=== PATIENT | female | born 1955 | race Hispanic/Latino ===

== ENCOUNTER → 2018-11-27 | Outpatient (CLI) | payer BC, MEDICAID ==
[~2018-11-27] MED LIST: CHLO500T3 PO; CLON0.252 PO; EMPA25TA PO; ESTR50GE TD; GLIM2TAB3 PO; HYDR25TA PO; LOSA100T58 PO; METF-446 PO; TRAM100C3 PO
== END | disposition home or self-care (01) ==
LOC: RAH 09:16
PROVIDERS: ATTEND Internal Medicine
DX: Z12.31 Encounter for screening mammogram for malignant neoplasm of breast (principal)
CPT/HCPCS: 77067

== ENCOUNTER 2021-01-31 13:32 | Emergency (ER) | payer BC ==
[~2021-01-31] VITALS: Ht 154.9 cm; Wt 69.4 kg
[~2021-01-31 13:32] MED LIST changes: -GLIM2TAB3 PO; +GLIM2TAB30 PO
[2021-01-31 14:54] LABS: APPEARANCE,URINE Clear (CLEAR); BILIRUBIN,URINE Negative (NEGATIVE); COLOR,URINE Yellow (YELLOW); GLUCOSE, URINE (UA) >=1000 mg/dL (NEGATIVE); KETONES,URINE Negative (NEGATIVE); LEUKOCYTE ESTERASE ,URINE Negative (NEGATIVE); NITRATE,URINE Negative (NEGATIVE); OCCULT BLOOD,URINE Negative (NEGATIVE); PH,URINE 7.5 (5.0-8.0); PROTEIN,URINE Negative (NEGATIVE); UROBILINOGEN,URINE 0.2 mg/dL (0.2-1.0)
[2021-01-31] MEDS ORDERED: KETOROLAC 30MG VIAL (30MG/ML) IM ONE (15:00)
[2021-01-31] MEDS ORDERED: ORPHENADRINE CITRATE 30 MG/ML ML IM ONE (15:00)
[2021-01-31 15:16] LABS: BACTERIA,URINE Rare /HPF (None Seen); RBC,URINE 0-1 /HPF (0-1); SQUAMOUS EPITHELIAL CELL,UR Rare /HPF (0-2); WBC,URINE 0-1 /HPF (0-1)
[2021-01-31 15:42] LABS: BASOPHILS % (AUTO) 0.7 % (0.0-5.0); EOSINOPHILS % (AUTO) 1.4 % (0.0-8.0); HEMATOCRIT 38.4 % (36-48); LYMPHOCYTES % (AUTO) 43.7 % (21.0-51.0); MEAN CORPUSCULAR HEMOGLOBIN 27.3 pg (27.0-33.0); MEAN CORPUSCULAR HGB CONC 31.5 g/dL (32.0-36.0); MEAN CORPUSCULAR VOLUME 86.7 fL (79-99); MONOCYTES % (AUTO) 6.1 % (3.0-13.0); PLATELET COUNT (AUTO) 363 K/uL (130-400); RED BLOOD CELL COUNT(AUTO) 4.43 MIL/uL (4.00-5.50); RED CELL DISTRIBUTION WIDTH 14.4 % (11.0-15.5); WHITE BLOOD COUNT (AUTO) 6.9 K/uL (4.8-10.8)
[2021-01-31 15:55] LABS: CREATININE 0.6 mg/dL (0.5-1.5); POTASSIUM 4.5 mmol/L (3.5-5.1)
[2021-01-31 15:59] LABS: ALBUMIN 3.6 g/dL (3.5-5.0); BILIRUBIN,TOTAL 0.2 mg/dL (0.2-1.0); TOTAL PROTEIN, SERUM 7.5 g/dL (6.0-8.3)
[2021-01-31 16:10] VITALS: BP 145/74
[2021-01-31] MEDS ORDERED: IBUP-2070 PO (16:42)
[2021-01-31] MEDS ORDERED: ORPH-43 PO (16:42)
== END 2021-01-31 17:04 | disposition home or self-care (01) ==
LOC: EDH 13:32
DX: S76.911A Strain of unspecified muscles, fascia and tendons at thigh level, right thigh, initial encounter (principal); R07.89 Other chest pain; M25.561 Pain in right knee; M79.605 Pain in left leg; M54.2 Cervicalgia; E11.9 Type 2 diabetes mellitus without complications; I10 Essential (primary) hypertension; M19.90 Unspecified osteoarthritis, unspecified site; Z88.0 Allergy status to penicillin; Z79.899 Other long term (current) drug therapy; Z79.84 Long term (current) use of oral hypoglycemic drugs; Z79.1 Long term (current) use of non-steroidal anti-inflammatories (NSAID); X58.XXXA Exposure to other specified factors, initial encounter; Y93.89 Activity, other specified; Y92.89 Other specified places as the place of occurrence of the external cause; Y99.8 Other external cause status
CPT/HCPCS: 36415; 71045; 80053; 81001; 82550; 84484; 85025; 93005; 96372 ×2; 99284; J1885; J2360

== ENCOUNTER → 2021-08-03 | Outpatient (CLI) | payer BC ==
[~2021-08-03] MED LIST changes: +IBUP-2070 PO; +ORPH-43 PO
== END ==
LOC: RAH 08:37
PROVIDERS: ATTEND Internal Medicine
DX: K44.9 Diaphragmatic hernia without obstruction or gangrene (principal)
CPT/HCPCS: 74240

== ENCOUNTER → 2021-10-15 | Outpatient (CLI) | payer BC ==
[~2021-10-15] VITALS: Ht 152.4 cm; Wt 66.4 kg
[~2021-10-15] MED LIST changes: +CYCL5TAB PO; +DICY20TA3 PO; +EMPA1TAB19 PO; +LOSA1TAB54 PO; +SEMA2PEN SQ; +VITAD50000 PO
[2021-10-15 13:22] LABS: BASOPHILS % (AUTO) 0.6 % (0.0-5.0); EOSINOPHILS % (AUTO) 1.4 % (0.0-8.0); LYMPHOCYTES % (AUTO) 39.7 % (21.0-51.0); MEAN CORPUSCULAR HEMOGLOBIN 26.8 pg (27.0-33.0); MEAN CORPUSCULAR HGB CONC 31.2 g/dL (32.0-36.0); MEAN CORPUSCULAR VOLUME 85.9 fL (79-99); MONOCYTES % (AUTO) 6.6 % (3.0-13.0); NEUTROPHILS % (AUTO) 51.4 % (40.0-77.0); PLATELET COUNT (AUTO) 358 K/uL (130-400); RED BLOOD CELL COUNT(AUTO) 4.89 MIL/uL (4.00-5.50); RED CELL DISTRIBUTION WIDTH 14.3 % (11.0-15.5); WHITE BLOOD COUNT (AUTO) 6.5 K/uL (4.8-10.8)
[2021-10-15 13:34] LABS: CREATININE 0.5 mg/dL (0.5-1.5); POTASSIUM 4.2 mmol/L (3.5-5.1)
[2021-10-16 09:14] VITALS: BP 129/76
== END | disposition home or self-care (01) ==
LOC: DAH 10:00 → EDSTATUS 10-17 14:00
PROVIDERS: ATTEND Surgery
DX: K44.9 Diaphragmatic hernia without obstruction or gangrene (principal)
CPT/HCPCS: 80048; 85025; 86850; 86900; 86901; 87426; 36415; 93005; A6260

== ENCOUNTER 2022-01-20 08:55 | Emergency (ER) | payer BC ==
[~2022-01-20] VITALS: Ht 152.4 cm; Wt 64.4 kg
[~2022-01-20 08:55] MED LIST changes: -CHLO500T3 PO; -CLON0.252 PO; -EMPA25TA PO; -ESTR50GE TD; -GLIM2TAB30 PO; -HYDR25TA PO; -IBUP-2070 PO; -LOSA100T58 PO; -METF-446 PO; -ORPH-43 PO; -TRAM100C3 PO
[2022-01-20] MEDS ORDERED: GABAPENTIN 300 MG CAPSULE ONE (09:23)
[2022-01-20] MEDS ORDERED: CYCLOBENZAPRINE HCL 10 MG TABLET ONE (09:23)
[2022-01-20] MEDS ORDERED: MORPHINE 2 MG SYG ONE (09:24)
[2022-01-20] MEDS ORDERED: MORPHINE 2 MG SYG IM ONE (09:30)
[2022-01-20] MEDS ORDERED: CYCLOBENZAPRINE HCL 10 MG TABLET PO ONE (09:30)
[2022-01-20] MEDS ORDERED: GABAPENTIN 300 MG CAPSULE PO SCH (09:30)
[2022-01-20] MEDS ORDERED: GABA300C PO (09:44)
[2022-01-20] MEDS ORDERED: IBUP-1493 PO (09:44)
[2022-01-20] MEDS ORDERED: LIDOP TD (09:44)
[2022-01-20 10:00] VITALS: BP 149/87
== END 2022-01-20 10:02 | disposition home or self-care (01) ==
LOC: EDH 08:55
DX: M25.512 Pain in left shoulder (principal); M19.90 Unspecified osteoarthritis, unspecified site; E11.9 Type 2 diabetes mellitus without complications; I10 Essential (primary) hypertension; Z90.49 Acquired absence of other specified parts of digestive tract; Z88.0 Allergy status to penicillin; Z79.899 Other long term (current) drug therapy; Z79.84 Long term (current) use of oral hypoglycemic drugs
CPT/HCPCS: 73030; 93005; 96372

== ENCOUNTER 2022-09-12 06:19 | Day surgery (SDC) | payer OTHER ==
[2022-09-11 11:38] VITALS: BP 140/82
[~2022-09-12] VITALS: Ht 154.9 cm; Wt 58.7 kg
[~2022-09-12 06:19] MED LIST changes: -CYCL5TAB PO; -DICY20TA3 PO; +PREG50CA63 PO; +SEMA1PEN3 SQ; -SEMA2PEN SQ; -VITAD50000 PO
[2022-09-12 07:00] VITALS: BP 118/69
[2022-09-12] MEDS ORDERED: PROPOFOL 10 MG/ML 20ML VIAL IV ONE (09:00)
[2022-09-12] MEDS ORDERED: SIMETHICONE 40 MG/0.6 ML ML ONE (09:08)
[2022-09-12] MEDS ORDERED: 0.9%NACL 1000ML 1,000 ML IV ONE (11:04)
== END 2022-09-12 10:02 | disposition home or self-care (01) ==
LOC: ENDO 06:19 → DAH 06:19 → ENDO 10:02
PROVIDERS: ATTEND Surgery
DX: R10.13 Epigastric pain (principal); Z20.822 Contact with and (suspected) exposure to COVID-19; K21.9 Gastro-esophageal reflux disease without esophagitis; K44.9 Diaphragmatic hernia without obstruction or gangrene; D64.9 Anemia, unspecified; K22.89 Other specified disease of esophagus; E11.43 Type 2 diabetes mellitus with diabetic autonomic (poly)neuropathy; K31.84 Gastroparesis; K29.70 Gastritis, unspecified, without bleeding; I10 Essential (primary) hypertension; M19.90 Unspecified osteoarthritis, unspecified site; Z88.0 Allergy status to penicillin; Z80.0 Family history of malignant neoplasm of digestive organs; Z98.890 Other specified postprocedural states; Z90.49 Acquired absence of other specified parts of digestive tract; Z79.899 Other long term (current) drug therapy
CPT/HCPCS: 87426; 82948; 88305; 88342; 43239; 88341; J7030 ×2; J2704; A4620; A4215 ×2; A4223; A4657 ×2; A7002; A4222; A4221; A4663; A4606

== ENCOUNTER → 2022-10-07 | Outpatient (CLI) | payer OTHER | END | disposition home or self-care (01) | LOC: RAH 09:30 | PROVIDERS: ATTEND Internal Medicine | DX: Z12.31 Encounter for screening mammogram for malignant neoplasm of breast (principal) | CPT/HCPCS: 77067 ==

== ENCOUNTER → 2022-12-05 | Outpatient (CLI) | payer OTHER ==
[~2022-12-05] MED LIST changes: +CLON0.5T4 PO; +CYCL5TAB PO; +DIATR MEGLU/DIATRIZOATE SODIUM 30 ML BOTTLE ONE; +FAMO20TA8 PO; +GABA300C PO; -PREG50CA63 PO
== END | disposition home or self-care (01) ==
LOC: RAH 09:24
PROVIDERS: ATTEND Pediatrics
DX: K44.9 Diaphragmatic hernia without obstruction or gangrene (principal); R11.0 Nausea; Z93.4 Other artificial openings of gastrointestinal tract status
CPT/HCPCS: 74240; Q9963

== ENCOUNTER → 2022-12-17 | Outpatient (CLI) | payer OTHER ==
[~2022-12-17] MED LIST changes: -DIATR MEGLU/DIATRIZOATE SODIUM 30 ML BOTTLE ONE
[2022-12-17 11:12] LABS: CREATININE 0.6 mg/dL (0.5-1.5)
== END | disposition home or self-care (01) ==
LOC: LAB 10:03
PROVIDERS: ATTEND Surgery
DX: R10.13 Epigastric pain (principal)
CPT/HCPCS: 36415; 82565; 84520

== ENCOUNTER → 2023-07-14 | Outpatient (CLI) | payer BC, OTHER ==
[2023-07-14 15:09] LABS: CREATININE 0.6 mg/dL (0.5-1.0)
== END | disposition home or self-care (01) ==
LOC: LAB 14:32
PROVIDERS: ATTEND Surgery
DX: K31.84 Gastroparesis (principal)
CPT/HCPCS: 36415; 82565; 84520

== ENCOUNTER → 2023-07-17 | Outpatient (CLI) | payer BC, OTHER ==
[~2023-07-17] MED LIST changes: +IOHEXOL-350 75 ML VIAL IV ONE
== END | disposition home or self-care (01) ==
LOC: RAH 10:40
PROVIDERS: ATTEND Surgery
DX: K57.90 Diverticulosis of intestine, part unspecified, without perforation or abscess without bleeding (principal); K31.84 Gastroparesis; R11.0 Nausea; R10.9 Unspecified abdominal pain; K76.89 Other specified diseases of liver; Z90.49 Acquired absence of other specified parts of digestive tract; I25.10 Atherosclerotic heart disease of native coronary artery without angina pectoris; K44.9 Diaphragmatic hernia without obstruction or gangrene; M47.815 Spondylosis without myelopathy or radiculopathy, thoracolumbar region
CPT/HCPCS: 74177; Q9967

== ENCOUNTER → 2023-07-25 | Outpatient (CLI) | payer BC, OTHER ==
[~2023-07-25] MED LIST changes: +DIATR MEGLU/DIATRIZOATE SODIUM 30 ML BOTTLE ONE; -IOHEXOL-350 75 ML VIAL IV ONE
== END | disposition home or self-care (01) ==
LOC: RAH 08:25
PROVIDERS: ATTEND Surgery
DX: K31.84 Gastroparesis (principal); R11.0 Nausea; R10.9 Unspecified abdominal pain
CPT/HCPCS: 74240; Q9963

== ENCOUNTER 2024-06-18 15:10 | Emergency (ER) | payer BC, OTHER ==
[~2024-06-18] VITALS: Ht 154.9 cm; Wt 71.2 kg
[~2024-06-18 15:10] MED LIST changes: -CYCL5TAB PO; +CYCL5TAB3 PO; -DIATR MEGLU/DIATRIZOATE SODIUM 30 ML BOTTLE ONE
--- NOTE | 2024-06-18 15:46 | ERN ---
General Chief Complaint: Toe Pain/Injury Stated Complaint: FOOT INJURY Time Seen by MD: 15:11 History of Present Illness Initial Comments 68-year-old female who presents for left toe injury. Patient reports yesterday she accidentally kicked a wall. She was pain at the 4th and 5th digits in the left toe. There is some bruising. No openings. Neurovascularly intact. Ambulatory with an antalgic gait. No other complaints. Allergies: Coded Allergies: Penicillins (Unverified Allergy, Unknown, 02/15/16) Home Meds Active Scripts Meloxicam (Meloxicam) 15 Mg Tablet, 15 MG PO DAILY PRN for PAIN for 10 Days, #10 TAB Prov:YASH BELTRAN DO 06/18/24 Hydrocodone/Acetaminophen (Hydrocodon-Acetaminophen 5-325) 5 Mg-325 Mg Tablet, 1-2 TAB PO TIDP PRN for pain for 3 Days, #20 TAB 0 Refills Prov:YASH BELTRAN DO 06/18/24 Reported Medications Clonazepam (Clonazepam) 0.5 Mg Tablet, 0.5 MG PO DAILY PRN for ANXIETY, TAB 11/12/22 Gabapentin (Neurontin) 300 Mg Capsule, 300 MG PO TID PRN for ARTHRITIS, CAP 11/12/22 Famotidine (Famotidine) 20 Mg Tablet, 20 MG PO BID, TAB 11/12/22 Cyclobenzaprine HCl (Cyclobenzaprine HCl) 5 Mg Tablet, 5 MG PO HS PRN for MUSCLE SPASMS, TAB 11/12/22 Semaglutide (Ozempic) 1 Mg/0.75 Ml Pen.injctr, 1 MG SQ QWEEK 09/11/22 Losartan/Hydrochlorothiazide (Losartan-Hctz 100-25 mg Tab) 1 Each Tablet, 1 EACH PO QODAY, TAB 10/16/21 Empagliflozin/Metformin HCl (Synjardy Xr 25-1,000 mg Tablet) 1 Each Tab.bp.24h, 1 EACH PO AM 10/16/21 Past Medical History Past Medical History: Arthritis, Diabetes-Type II Medical History Other: GASTROPARISIS, HIATAL HERNIA, ABD SX Past Surgical History: Other Surgical History Other: ABD SX, PELVIC MESH, BILAT SX Family History Family History: HTN Social History Social History: Negative, Lives with family ROS Dictation CONSTITUTIONAL: No chills, no fever, no weakness, no diaphoresis, no malaise. HEAD/FACE: No signs of trauma. EENT: No eye pain, no blurred vision, no tearing, no double vision, no ear pain, no ear discharge, no nose pain, no nasal congestion, no throat pain, no throat swelling, no mouth pain. RESPIRATORY: No cough, no orthopnea, no SOB, no stridor, no wheezing. CARDIOVASCULAR: No chest pain, no edema, no palpitations, no syncope. GASTROINTESTINAL/ABDOMINAL: No abdominal pain, no constipation, no diarrhea, no nausea, no vomiting. GENITOURINARY: No abnormal discharge, no dysuria, no frequent urination, no hematuria. No complaints of pain in the genitals. MUSCULOSKELETAL: Left toe pain INTEGUMENTARY: No change in color, no change in hair/nails, no dryness, no lesion, no lumps, no rash. NEUROLOGICAL/PSYCH: No anxiety, not depressed, no emotional problem, no headache, no numbness, no pre-existing deficit, no history of seizures, no tremors, no weakness. HEMATOLOGIC/LYMPHATIC: Not anemic, no history of blood clots, no apparent bleeding, no bruising, glands not swollen. All Systems Negative, Except as Noted. Physical Exam Physical Exam Dictation VITAL SIGNS: Reviewed. GENERAL APPEARANCE: Alert, oriented x3, no acute distress HEAD AND FACE: Non-traumatic. EYES: PERRL, pink conjunctivas, eyelid no trauma, anterior chamber clear. EARS: Pinnas intact and no signs of trauma or erythema. Ear canals clear and no discharge. TMs no erythema. NOSE: No discharge, no bleeding. OROPHARYNX: Mouth normal, teeth no caries, tongue pink. Pharynx clear, no erythema. Tonsils no exudates, no abscesses noted. Mucous membrane moist. NECK: Supple, non-tender, no thyromegaly, no masses, no JVD, no bruits. BREAST: Deferred. CHEST: No tenderness, no crepitus, no paradoxical movement, no retractions. LUNGS: Clear, well-ventilated, symmetric, no rales, no wheezing, no rhonchi, no stridor, good breath sounds bilaterally. HEART: Regular rate, regular rhythm, no murmur, no gallops. VASCULAR: No peripheral edema. ABDOMEN: Soft, positive bowel sounds, nondistended, no guarding, nontender, no rebound, no masses no hepatomegaly, no splenomegaly, no Ahn's sign, no hernias. RECTAL: Deferred. GENITAL: Deferred. NEUROLOGICAL: Normal speech, gross motor function intact, gross sensory function intact. MUSCULOSKELETAL: Neck nontender, full range of motion, back nontender, full range of motion. Bruising to the left 4th and 5th digits EXTREMITIES: Nontender, full range of motion. SKIN: Color pink, dry, no turgor, no rash, no lacerations, no abrasions, no contusions. LYMPHATICS: Deferred. MDM CC: Toe injury Historian: Patient Comorbidities: Diabetes Limitations by social determinants of: None Differential diagnosis: Fracture, soft tissue injury, other Vital signs: Stable No labs indicated Toe x-ray (independently interpreted by me ): Mildly displaced fracture proximal phalanx 5th digit Patient placed in a mane tape hard sole shoe. Plan: DC with meloxicam, [place] prescriptions Orthopedic follow up Patient agrees ED Course Orders Procedure Category Date Status Time Toe(S) 2+Vws Lt RAD 06/18/24 Resulted 15:27 Vital Signs Date Time Temp Pulse Resp B/P (MAP) Pulse Ox O2 Delivery O2 Flow Rate FiO2 06/18/24 16:38 97.9 70 18 137/79 99 Room Air* 0 21 06/18/24 15:27 97.9 75 18 142/82 99 Room Air DX & DISP Disposition: Discharge Departure Impression: Primary Impression: Nondisplaced fracture of proximal phalanx of left lesser toe(s), initial encounter for closed fracture Condition: Stable Scripts Meloxicam (Meloxicam) 15 Mg Tablet 15 MG PO DAILY PRN for PAIN for 10 Days, #10 TAB Prov: YASH BELTRAN DO 06/18/24 Hydrocodone/Acetaminophen (Hydrocodon-Acetaminophen 5-325) 5 Mg-325 Mg Tablet 1-2 TAB PO TIDP PRN for pain for 3 Days, #20 TAB 0 Refills Prov: YASH BELTRAN DO 06/18/24 Additional Instructions: You have a left closed proximal phalanx fracture of your pinky toe. This type of fracture usually heals well with rest, pain control and limited weight- bearing. I have prescribed meloxicam. This is an anti-inflammatory pain medication. You should take this once per day as needed for pain. Do not mix this medication with ibuprofen or naproxen. I recommend that you take with food to avoid an upset stomach. I have prescribed [place] (hydrocodone-acetaminophen) tabs. Use as needed for severe pain. Do not drive or operate heavy machinery while taking this medicat ion. Avoid alcohol with this medication. I recommend that you wear a hard-soled shoe to protect the foot. Limit weight-bearing on the injured foot as tolerated. Elevate the foot as much as tolerated. I recommend that you apply ice for 20 minutes three or 4 times per day for the 1st 48 hours after injury. I recommend that you mane tape the toes until the wound is healed. Please follow up with Dr. Hester, orthopedic within 5-7 days for further evaluation. Return to the emergency department sooner as needed. Referrals: NETO JOHN MD (PCP) MARICHUY HESTER MD, RYAN E DO Jun 18, 2024 15:46
[2024-06-18] MEDS ORDERED: HYDR-4060 PO (16:11)
[2024-06-18] MEDS ORDERED: MELO-108 PO (16:11)
[2024-06-18 16:38] VITALS: BP 137/79; PULSE 70; RESP 18; TEMP 97.9; O2SAT 99
--- NOTE | 2024-06-18 16:55 | HMCIMG ---
LEFT FIRST THROUGH FIFTH TOE RADIOGRAPHS - 2-3 VIEWS INDICATION: Fourth and fifth toe pain after trauma COMPARISON: None FINDINGS: AP, lateral, and oblique views. Nondisplaced transverse fracture through the proximal shaft of the fifth proximal phalanx. No evidence for joint subluxation. No radiopaque foreign body noted. IMPRESSION: Nondisplaced transverse fracture through the proximal shaft of the fifth proximal phalanx.
== END 2024-06-18 16:40 | disposition home or self-care (01) ==
LOC: EDH 15:10
DX: S92.515A Nondisplaced fracture of proximal phalanx of left lesser toe(s), initial encounter for closed fracture (principal); M19.90 Unspecified osteoarthritis, unspecified site; E11.9 Type 2 diabetes mellitus without complications; Z79.85 Long-term (current) use of injectable non-insulin antidiabetic drugs; Z88.0 Allergy status to penicillin; W22.01XA Walked into wall, initial encounter; Y93.89 Activity, other specified; Y92.89 Other specified places as the place of occurrence of the external cause; Y99.8 Other external cause status
CPT/HCPCS: 73660; 99283

== ENCOUNTER → 2024-06-23 | Outpatient (CLI) | payer BC, OTHER ==
[~2024-06-23] MED LIST changes: +HYDR-4060 PO; +IOHEXOL 350 MG/ML 100ML INFUS..BTL IV ONE; +MELO-108 PO
[2024-06-23 09:50] LABS: POC CREATININE 0.5 mg/dL (0.6-1.1)
--- NOTE | 2024-06-23 12:06 | HMCIMG ---
CT ABDOMEN/PELVIS W/CONTRAST HISTORY: Left upper quadrant pain COMPARISON: None TECHNIQUE: Multiple sequential axial images of the abdomen and pelvis were obtained from the dome of the diaphragm through symphysis pubis. Patient was given 100 cc of Isovue through intravenous route. Oral contrast was given. FINDINGS: No pleural effusion is seen bilaterally. There is no evidence of parenchymal disease or pulmonary nodule of the visualized lower lungs. Degenerative changes of the thoracolumbar spine are present. The heart is not enlarged. Moderate size hiatal hernia is seen. No bowel obstruction seen. Mild small bowel dilatation is seen. The liver, spleen, adrenal glands and pancreas are unremarkable. There is no evidence of hydronephrosis bilaterally. No evidence of renal stone is seen. There is mild diverticulosis. Fecal material is seen in the colon. There are normal size retroperitoneal and mesenteric lymph nodes. No ascites is seen. Atherosclerotic changes are present. Pelvic sidewalls are symmetric bilaterally. Bladder is well distended without wall thickening. IMPRESSION: 1. Moderate size hiatal hernia. No bowel obstruction is seen. Mild small bowel dilatation is seen. There is mild diverticulosis. Fecal material is seen in the colon. CT was performed with one or more following dose reduction techniques: automated exposure control, adjustment of the mA and kv according to patient's size, or use of a iterative reconstruction technique.
== END | disposition home or self-care (01) ==
LOC: RAH 09:18
PROVIDERS: ATTEND Surgery
DX: K57.30 Diverticulosis of large intestine without perforation or abscess without bleeding (principal); K44.9 Diaphragmatic hernia without obstruction or gangrene; N32.89 Other specified disorders of bladder; R10.12 Left upper quadrant pain; K31.84 Gastroparesis; M47.815 Spondylosis without myelopathy or radiculopathy, thoracolumbar region; I70.90 Unspecified atherosclerosis
CPT/HCPCS: 74177; 82565; 36415; Q9967

== ENCOUNTER 2024-07-22 06:37 | Day surgery (SDC) | payer BC, OTHER ==
[~2024-07-22] VITALS: Ht 154.9 cm; Wt 71.2 kg
[2024-07-22] VITALS (10 sets, daily range): BP systolic 115–142; BP diastolic 62–75; PULSE 67–76; RESP 14–18; TEMP 97.7–97.8
[~2024-07-22 06:37] MED LIST changes: +0.9%NACL 1000ML 1,000 ML IV ONE; -CYCL5TAB3 PO; -EMPA1TAB19 PO; +INSU100I24 SQ; -IOHEXOL 350 MG/ML 100ML INFUS..BTL IV ONE; -LOSA1TAB54 PO; +METF-527 PO; -SEMA1PEN3 SQ; +TIRZ2.5P SQ
[2024-07-22] MEDS ORDERED: proPOFol 10 MG/ML 20ML VIAL IV ONE (07:53)
[2024-07-22] MEDS ORDERED: LIDOCAINE PF 100MG/5ML (2%) SYRINGE 5ML ONE (08:07)
--- NOTE | 2024-07-22 09:31 | NUR ---
Full and complete discharge instructions given to Patient and Family both verbally and in writing. Explained GI procedure precautions and follow up. All questions answered. PIV removed with catheter tip intact. Home with Family W/C to POV.
== END 2024-07-22 09:30 | disposition home or self-care (01) ==
LOC: DAH 06:37 → ENDO 06:37
PROVIDERS: ATTEND Surgery
DX: R10.13 Epigastric pain (principal); K29.50 Unspecified chronic gastritis without bleeding; K21.00 Gastro-esophageal reflux disease with esophagitis, without bleeding; K31.84 Gastroparesis; K31.89 Other diseases of stomach and duodenum; J45.909 Unspecified asthma, uncomplicated; K21.9 Gastro-esophageal reflux disease without esophagitis; E11.9 Type 2 diabetes mellitus without complications; K44.9 Diaphragmatic hernia without obstruction or gangrene; M19.90 Unspecified osteoarthritis, unspecified site; I10 Essential (primary) hypertension; K22.70 Barrett's esophagus without dysplasia; Z80.0 Family history of malignant neoplasm of digestive organs; Z88.0 Allergy status to penicillin; Z79.899 Other long term (current) drug therapy
CPT/HCPCS: 43239; 82948 ×2; J7030; J2003; J2704; A4215; A4223; A4222; A4221; A4663; A4606; J3490

== ENCOUNTER 2024-07-29 17:33 | Emergency (ER) | payer BC, OTHER ==
[~2024-07-29] VITALS: Ht 154.9 cm; Wt 72.6 kg
[~2024-07-29 17:33] MED LIST changes: -0.9%NACL 1000ML 1,000 ML IV ONE
--- NOTE | 2024-07-29 17:51 | ERN ---
ED Note History of Present Illness Stated Complaint: LEFT ARM FX FROM PCP Chief Complaint: Upper Extremity Pain/Injury Time Seen by MD: 17:33 Time Seen by Midlevel: 17:33 Dictation: The patient is a 68-year-old female with a history of diabetes, gastroenteritis who presents to the emergency department with complaints of left forearm pain right knee pain status post trip and fall at her job 2:00 p.m. patient reports positive head strike, negative LOC, negative use of blood thinners. Reports nausea but no vomiting. Reports she went to a day night clinic where they told her she had a radial fracture and referred her to ER. Allergies: Coded Allergies: Penicillins (Unverified Allergy, Unknown, 02/15/16) Home Meds Active Scripts Meloxicam (Meloxicam) 15 Mg Tablet, 15 MG PO DAILY PRN for PAIN for 10 Days, #10 TAB Prov:YASH BELTRAN DO 07/29/24 Hydrocodone/Acetaminophen (Hydrocodon-Acetaminophen 5-325) 5 Mg-325 Mg Tablet, 1 TAB PO TIDP PRN for pain for 7 Days, #20 TAB 0 Refills Prov:YASH BELTRAN DO 07/29/24 Meloxicam (Meloxicam) 15 Mg Tablet, 15 MG PO DAILY PRN for PAIN for 10 Days, #10 TAB Prov:YASH BELTRAN DO 06/18/24 Hydrocodone/Acetaminophen (Hydrocodon-Acetaminophen 5-325) 5 Mg-325 Mg Tablet, 1-2 TAB PO TIDP PRN for pain for 3 Days, #20 TAB 0 Refills Prov:YASH BELTRAN DO 06/18/24 Reported Medications Insulin Degludec (Tresiba Flextouch U-100) 100 Unit/Ml (3 Ml) Insuln.pen, 22 UNIT SQ DAILYDINNER, SYRINGE 07/21/24 Tirzepatide (Mounjaro) 2.5 Mg/0.5 Ml Pen.injctr, 2.5 MG SQ QWEEK 07/21/24 Metformin HCl (Metformin HCl ER) 1,000 Mg Tab.er.24, 1000 MG PO DAILY 07/21/24 Clonazepam (Clonazepam) 0.5 Mg Tablet, 0.5 MG PO DAILY PRN for ANXIETY, TAB 11/12/22 Gabapentin (Neurontin) 300 Mg Capsule, 300 MG PO TID PRN for ARTHRITIS, CAP 11/12/22 Famotidine (Famotidine) 20 Mg Tablet, 20 MG PO BID, TAB 11/12/22 Past Medical History Past Medical History: Diabetes-Type II Additional Past Medical Hx: GASTROPARISIS, HIATAL HERNIA, ABD SX Surgical History: Cholecystectomy, Other Surgical History Other: GASTRO STIMULATOR, LOOP INTESTINAL, BILATERAL SHOULDER LEFT ANKLE, HERNIA Family History: HTN Social History: Negative, Lives with family RN Note Reviewed/Agreed w/PFSH: Yes Review of System Dictation Constitutional: Negative for fever,chills, and weight loss Eyes: Negative for injury, pain,redness, and discharge ENT: Negative for injury,pain or swelling Cardiovascular: Negative for chest pain, palpitations, and edema Respiratory: Negative for shortness of breath, cough, and wheezing, Abdomen/GI: Negative for abdominal pain, nausea, vomiting, diarrhea, and constipation Back: Negative for injury and pain : Negative for injury, bleeding and discharge MS/Extremity: Positive for left forearm pain, right knee pain Skin: Negative for rash, and discoloration Neuro: Negative for headache, weakness, numbness, tingling, and seizure Psych: Negative for suicide ideation, homicidal ideation, and hallucinations Initial Vital Sign VS Vital Signs Date Time Temp Pulse Resp B/P (MAP) Pulse Ox O2 Delivery O2 Flow Rate FiO2 07/29/24 17:34 98.1 72 20 166/80 99 Room Air 0 07/29/24 17:47 21 Physical Exam Dictation Vital Signs reviewed General Appearance: Alert, oriented x 3, no acute distress, well developed, nourished. Head and Face: non-traumatic. Eyes: PERRL, pink conjunctivas, eyelid no trauma, anterior chamber with arcus senilis. Ears: Pinnas intact and no signs of trauma or erythema ear canals clear and no d ischarge TM no erythema Nose: No discharge, no bleeding. Oropharynx: Mouth normal, tongue pink. pharynx clear,no erythema, tonsils no exudates, no abscesses noted, mucous membrane moist Neck: Supple, non-tender, no thyromegaly, no masses, no JVD, no bruits Breast:Deferred Chest:No tenderness, no crepitus, no paradoxical movement, no retractions Lungs:Clear, well-ventilated, symmetric, no rales, no wheezing, no rhonchi, no stridor, good breath sounds bilaterally Heart: Regular rate, regular rhythm, no murmur, no gallops Vascular: no peripheral edema, radial pulses 3+ bilaterally Abdomen: Soft, positive bowel sounds, nondistended, no guarding, nontender, no rebound, no masses no hepatomegaly, no splenomegaly, no Ahn's sign, no hernias. Rectal: Deferred Genital: Deferred Neurological: Normal speech, motor function intact, sensory function intact Musculoskeletal: Neck nontender, full range of motion, back nontender, full range of motion, Extremities: nontender, full range of motion Skin: Color pink, dry, no turgor, no rash, no lacerations, no abrasions, no contusions. Lymphatic: Deferred Results (Laboratory/Radiology) Laboratory/Radiology REASON: fall, head trauma ORDERING PHYSICIAN: NERY BORJA PROCEDURE: HEAD WO - CT HEAD/BRAIN W/O CONTRAST CT HEAD WITHOUT CONTRAST INDICATION: Fall head trauma TECHNIQUE: Noncontrast axial helical CT images from the vertex through the skull base using 5 mm slice thickness without contrast material. Coronal and sagittal reconstructions were also included. Dose reduction techniques was used using integrated, automated and adaptive dose reduction exposure control. CT was performed with one or more of the following dose reduction techniques: Automated exposure control, adjustment of the mA and/or kV according to patient size, or use of iterative reconstruction technique. COMPARISON: None FINDINGS: Scattered and coalescent subcortical and periventricular white matter low attenuating areas likely represent residual of chronic small vessel arteriopathy and/or remote vascular insult. Generalized mild cerebral cortical atrophy is present.. No evidence for abnormal extra-axial fluid collections or masses. The ventricles and sulci are normal in size and configuration. No evidence for intracranial parenchymal, epidural, or subdural hemorrhage, mass effect or midline shift. The warren-white matter differentiation is well preserved. No secondary evidence to suggest acute ischemia. Mild calcific plaque is present along the griggs of the cavernous segments of both internal carotid arteries. The brainstem and cerebellum appear normal. The visualized orbits appear unremarkable. The visible paranasal sinuses and mastoid air cells are clear. The calvarium appears normal. IMPRESSION: Chronic white matter ischemic changes, mild brain atrophy, and arteriosclerotic disease as described, without acute component. REASON: fall, head trauma ORDERING PHYSICIAN: NERY BORJA PROCEDURE: C SPIN WO - CT CERVICAL SPINE W/O CONTRAST CT CERVICAL SPINE WITHOUT CONTRAST INDICATION: Neck pain after fall TECHNIQUE: Contiguous axial computed tomography imaging using 2 mm slice thickness through the cervical spine. Reconstructions in the sagittal and coronal planes. CT was performed with one or more of the following dose reduction techniques: Automated exposure control, adjustment of the mA and/or kV according to patient size, or use of iterative reconstruction technique. COMPARISON: None. FINDINGS: Straightening of the normal lordosis may be related to overlying muscle spasm, underlying degenerative joint disease and/or patient positioning. Vertebral bodies are normal stature without evidence for compression deformity or fracture. No evidence for subluxation. Multilevel mild to moderate cervical spondylosis. The craniocervical junction appears normal. The atlantoaxial articulation is within normal limits. The dens is intact. The pre- and paravertebral soft tissues appear unremarkable. IMPRESSION: No evidence for fracture or subluxation. REASON: fall, injury ORDERING PHYSICIAN: NERY BORJA PROCEDURE: FORARML - FOREARM 2VWS LT LEFT FOREARM RADIOGRAPHS - 2 VIEWS INDICATION: Pain COMPARISON: None FINDINGS: AP and lateral views. Distal left ulna is intact. Nondisplaced transverse articular impaction fracture deformity through the distal left radial metaphysis. Labs Reviewed?: Yes ED Course ED Course Orders Procedure Category Date Status Time Forearm 2vws Lt RAD 07/29/24 Resulted 17:43 Ct Head/Brain W/O CT 07/29/24 Resulted Contrast 17:43 Ct Cervical Spine W/O CT 07/29/24 Resulted Contrast 17:43 Morphine 4mg Syg PHA 07/29/24 Complete (Morphine 4mg Syg) 18:00 Ondansetron 4mg Inj PHA 07/29/24 Complete (Zofran 4mg Inj) 18:00 Current Medications Medications (Trade) Dose Ordered Sig/Genny Route PRN Reason Start Time Stop Time Status Last Admin Dose Admin Morphine Sulfate (morPHINE 4MG SYG) 4 mg ONCE ONCE IVP 07/29/24 18:00 07/29/24 18:01 DC 07/29/24 18:14 Ondansetron HCl (zoFRAN 4MG INJ) 4 mg ONCE ONCE IVP 07/29/24 18:00 07/29/24 18:01 DC 07/29/24 18:14 Vital Signs Date Time Temp Pulse Resp B/P (MAP) Pulse Ox O2 Delivery O2 Flow Rate FiO2 07/29/24 19:14 98.1 77 20 152/74 99 Room Air* 0 21 07/29/24 17:47 98.1 72 20 166/80 99 Room Air* 0 21 07/29/24 17:34 98.1 72 20 166/80 99 Room Air 0 Medical Decision Making MDM The patient is a 68-year-old female with a history of diabetes, gastroenteritis who presents to the emergency department with complaints of left forearm pain right knee pain status post trip and fall at her job 2:00 p.m. patient reports positive head strike, negative LOC, negative use of blood thinners. Reports nausea but no vomiting. Reports she went to a day night clinic where they told her she had a radial fracture and referred her to ER. Ct head showed no acute component. Ct C spine showed no evidence of fracture or subluxation. Forearm showed nondisplaced transverse articular impaction fracture deformity through the distal left radial metaphysis. patient was placed on a sugar tong spling and refered to ortho. Patient neurovascular intact, no open wounds. In no acute distress. Differential diagnosis: Radial fracture, right knee contusion, subdural hematoma Need for hospitalization: Patient does not meet criteria for hospitalization. There are no social concerns with this patient. DX & DISP Disposition: Discharge Departure Impression: Primary Impression: Closed fracture of left wrist Condition: Stable Scripts Meloxicam (Meloxicam) 15 Mg Tablet 15 MG PO DAILY PRN for PAIN for 10 Days, #10 TAB Prov: YASH BELTRAN DO 07/29/24 Hydrocodone/Acetaminophen (Hydrocodon-Acetaminophen 5-325) 5 Mg-325 Mg Tablet 1 TAB PO TIDP PRN for pain for 7 Days, #20 TAB 0 Refills Prov: YASH BELTRAN DO 07/29/24 Additional Instructions: You have a nondisplaced radial fracture (wrist fracture). The CT scans are unremarkable. I recommend that you follow up with an orthopedist. I have given you a referral to Dr. Hester. Wear the splint that you have been provided until you are evaluated by an orthopedist. I have prescribed meloxicam, which is an anti-inflammatory pain medication. You can take this once per day for pain. I have prescribed [place] tabs, which is an opiate based pain medication. You can take this every 4 hours as needed for significant pain. Please return to the emergency department if you have any concerns. Referrals: NETO JOHN MD (PCP) MARICHUY HESTER MD Time of Disposition: 19:03 I have examined patient, & reviewed all documents, & agreed W/ the Diagnosis, and Plan I performed a substantive portion of the visit. I have reviewed and personally made and approve the management plan that is documented in the notes by myself with LOLA/resident. I acknowledged full responsibility for the patient's management plan. NERY BORJA July 29, 2024 17:51 YASH BELTRAN DO July 29, 2024 18:56
[2024-07-29] MEDS: ondanSETRON 4MG INJ IVP ONE (18:14)
[2024-07-29] MEDS: morPHINE 4 MG SYG IVP ONE (18:14)
--- NOTE | 2024-07-29 18:26 | HMCIMG ---
LEFT FOREARM RADIOGRAPHS - 2 VIEWS INDICATION: Pain COMPARISON: None FINDINGS: AP and lateral views. Distal left ulna is intact. Nondisplaced transverse articular impaction fracture deformity through the distal left radial metaphysis.
--- NOTE | 2024-07-29 18:32 | HMCIMG ---
CT HEAD WITHOUT CONTRAST INDICATION: Fall head trauma TECHNIQUE: Noncontrast axial helical CT images from the vertex through the skull base using 5 mm slice thickness without contrast material. Coronal and sagittal reconstructions were also included. Dose reduction techniques was used using integrated, automated and adaptive dose reduction exposure control. CT was performed with one or more of the following dose reduction techniques: Automated exposure control, adjustment of the mA and/or kV according to patient size, or use of iterative reconstruction technique. COMPARISON: None FINDINGS: Scattered and coalescent subcortical and periventricular white matter low attenuating areas likely represent residual of chronic small vessel arteriopathy and/or remote vascular insult. Generalized mild cerebral cortical atrophy is present.. No evidence for abnormal extra-axial fluid collections or masses. The ventricles and sulci are normal in size and configuration. No evidence for intracranial parenchymal, epidural, or subdural hemorrhage, mass effect or midline shift. The warren-white matter differentiation is well preserved. No secondary evidence to suggest acute ischemia. Mild calcific plaque is present along the griggs of the cavernous segments of both internal carotid arteries. The brainstem and cerebellum appear normal. The visualized orbits appear unremarkable. The visible paranasal sinuses and mastoid air cells are clear. The calvarium appears normal. IMPRESSION: Chronic white matter ischemic changes, mild brain atrophy, and arteriosclerotic disease as described, without acute component.
--- NOTE | 2024-07-29 18:33 | HMCIMG ---
CT CERVICAL SPINE WITHOUT CONTRAST INDICATION: Neck pain after fall TECHNIQUE: Contiguous axial computed tomography imaging using 2 mm slice thickness through the cervical spine. Reconstructions in the sagittal and coronal planes. CT was performed with one or more of the following dose reduction techniques: Automated exposure control, adjustment of the mA and/or kV according to patient size, or use of iterative reconstruction technique. COMPARISON: None. FINDINGS: Straightening of the normal lordosis may be related to overlying muscle spasm, underlying degenerative joint disease and/or patient positioning. Vertebral bodies are normal stature without evidence for compression deformity or fracture. No evidence for subluxation. Multilevel mild to moderate cervical spondylosis. The craniocervical junction appears normal. The atlantoaxial articulation is within normal limits. The dens is intact. The pre- and paravertebral soft tissues appear unremarkable. IMPRESSION: No evidence for fracture or subluxation.
--- NOTE | 2024-07-29 18:46 | NUR ---
SPLINT APPLIED TO LT ARM AND PLACED IN SLING, PT TOLERATED WELL
[2024-07-29 19:14] VITALS: BP 152/74; PULSE 77; RESP 20; TEMP 98.1; O2SAT 99
== END 2024-07-29 19:15 | disposition home or self-care (01) ==
LOC: EDH 17:33
DX: S52.325A Nondisplaced transverse fracture of shaft of left radius, initial encounter for closed fracture (principal); E11.9 Type 2 diabetes mellitus without complications; Z79.84 Long term (current) use of oral hypoglycemic drugs; Z79.85 Long-term (current) use of injectable non-insulin antidiabetic drugs; Z88.0 Allergy status to penicillin; Z90.49 Acquired absence of other specified parts of digestive tract; W01.0XXA Fall on same level from slipping, tripping and stumbling without subsequent striking against object, initial encounter; Y93.89 Activity, other specified; Y92.89 Other specified places as the place of occurrence of the external cause; Y99.8 Other external cause status
CPT/HCPCS: 99285; 70450; 96374; 96375; 73090; 72125; 29125; J2405; J2270

== ENCOUNTER 2024-07-31 12:34 | Emergency (ER) | payer BC, OTHER ==
[~2024-07-31] VITALS: Ht 154.9 cm; Wt 72.6 kg
[2024-07-31 12:46] VITALS: BP 146/76; PULSE 77; RESP 16; TEMP 98.3
--- NOTE | 2024-07-31 12:55 | ERN ---
General Chief Complaint: Other Problems Stated Complaint: ADJUST CAST Time Seen by MD: 12:46 Source: patient History of Present Illness Initial Comments PATIENT IS A 68-YEAR-OLD FEMALE COMING IN TO BE EVALUATED FOR LEFT ARM PAIN. PATIENT STATES THAT SHE WAS RECEIVED DIAGNOSED WITH A RADIAL FRACTURE SHE STATES THAT SHE PUT A SPLINT ON HER ARM BUT STATES THAT SHE COULD NOT TOLERATED SO SHE TOOK IT OFF. Allergies: Coded Allergies: Penicillins (Unverified Allergy, Unknown, 02/15/16) Home Meds Active Scripts Meloxicam (Meloxicam) 15 Mg Tablet, 15 MG PO DAILY PRN for PAIN for 10 Days, #10 TAB Prov:YASH BELTRAN DO 07/29/24 Hydrocodone/Acetaminophen (Hydrocodon-Acetaminophen 5-325) 5 Mg-325 Mg Tablet, 1 TAB PO TIDP PRN for pain for 7 Days, #20 TAB 0 Refills Prov:YASH BELTRAN DO 07/29/24 Meloxicam (Meloxicam) 15 Mg Tablet, 15 MG PO DAILY PRN for PAIN for 10 Days, #10 TAB Prov:YASH BELTRAN DO 06/18/24 Hydrocodone/Acetaminophen (Hydrocodon-Acetaminophen 5-325) 5 Mg-325 Mg Tablet, 1-2 TAB PO TIDP PRN for pain for 3 Days, #20 TAB 0 Refills Prov:YASH BELTRAN DO 06/18/24 Reported Medications Insulin Degludec (Tresiba Flextouch U-100) 100 Unit/Ml (3 Ml) Insuln.pen, 22 UNIT SQ DAILYDINNER, SYRINGE 07/21/24 Tirzepatide (Mounjaro) 2.5 Mg/0.5 Ml Pen.injctr, 2.5 MG SQ QWEEK 07/21/24 Metformin HCl (Metformin HCl ER) 1,000 Mg Tab.er.24, 1000 MG PO DAILY 07/21/24 Clonazepam (Clonazepam) 0.5 Mg Tablet, 0.5 MG PO DAILY PRN for ANXIETY, TAB 11/12/22 Gabapentin (Neurontin) 300 Mg Capsule, 300 MG PO TID PRN for ARTHRITIS, CAP 11/12/22 Famotidine (Famotidine) 20 Mg Tablet, 20 MG PO BID, TAB 11/12/22 Past Medical History Past Medical History: Diabetes-Type II Medical History Other: GASTROPARISIS, HIATAL HERNIA, ABD SX Past Surgical History: Cholecystectomy, Other Surgical History Other: GASTRO STIMULATOR, LOOP INTESTINAL, BILATERAL SHOULDER LEFT ANKLE, HERNIA Family History Family History: HTN Social History Social History: Negative, Lives with family ROS Dictation CONSTITUTIONAL: NO CHILLS, NO FEVER, NO WEAKNESS, NO DIAPHORESIS, NO MALAISE. HEAD/FACE: NO SIGNS OF TRAUMA. EENT: NO EYE PAIN, NO BLURRED VISION, NO TEARING, NO DOUBLE VISION, NO EAR PAIN, NO EAR DISCHARGE, NO NOSE PAIN, NO NASAL CONGESTION, NO THROAT PAIN, NO THROAT SWELLING, NO MOUTH PAIN. RESPIRATORY: NO COUGH, NO ORTHOPNEA, NO SOB, NO STRIDOR, NO WHEEZING. CARDIOVASCULAR: NO CHEST PAIN, NO EDEMA, NO PALPITATIONS, NO SYNCOPE. GASTROINTESTINAL/ABDOMINAL: NO ABDOMINAL PAIN, NO CONSTIPATION, NO DIARRHEA, NO NAUSEA, NO VOMITING. GENITOURINARY: NO ABNORMAL DISCHARGE, NO DYSURIA, NO FREQUENT URINATION, NO HEMATURIA. NO COMPLAINTS OF PAIN IN THE GENITALS. MUSCULOSKELETAL: NO BACK PAIN, NO GOUT, JOINT PAIN, JOINT SWELLING, NO MUSCLE PAIN, NO MUSCLE STIFFNESS, NO NECK PAIN. INTEGUMENTARY: NO CHANGE IN COLOR, NO CHANGE IN HAIR/NAILS, NO DRYNESS, NO LESION, NO LUMPS, NO RASH. NEUROLOGICAL/PSYCH: NO ANXIETY, NOT DEPRESSED, NO EMOTIONAL PROBLEM, NO HEADACHE, NO NUMBNESS, NO PRE-EXISTING DEFICIT, NO HISTORY OF SEIZURES, NO TREMORS, NO WEAKNESS. HEMATOLOGIC/LYMPHATIC: NOT ANEMIC, NO HISTORY OF BLOOD CLOTS, NO APPARENT BLEEDING, NO BRUISING, GLANDS NOT SWOLLEN. ALL SYSTEMS NEGATIVE, EXCEPT NOTED. Physical Exam Physical Exam Dictation VITAL SIGNS: REVIEWED. GENERAL APPEARANCE: ALERT, ORIENTED X3, NO ACUTE DISTRESS, OBESE. HEAD AND FACE: NON-TRAUMATIC. EYES: PERRL, PINK CONJUNCTIVAS, EYELID NO TRAUMA, ANTERIOR CHAMBER CLEAR. EARS: PINNAS INTACT AND NO SIGNS OF TRAUMA OR ERYTHEMA. EAR CANALS CLEAR AND NO DISCHARGE. TMS NO ERYTHEMA. NOSE: NO DISCHARGE, NO BLEEDING. OROPHARYNX: MOUTH NORMAL, TEETH NO CARIES, TONGUE PINK. PHARYNX CLEAR, NO ERYTHEMA. TONSILS NO EXUDATES, NO ABSCESSES NOTED. MUCOUS MEMBRANE MOIST. NECK: SUPPLE, NON-TENDER, NO THYROMEGALY, NO MASSES, NO JVD, NO BRUITS. BREAST: DEFERRED. CHEST: NO TENDERNESS, NO CREPITUS, NO PARADOXICAL MOVEMENT, NO RETRACTIONS. LUNGS: CLEAR, WELL-VENTILATED, SYMMETRIC, NO RALES, NO WHEEZING, NO RHONCHI, NO STRIDOR, GOOD BREATH SOUNDS BILATERALLY. HEART: REGULAR RATE, REGULAR RHYTHM, NO MURMUR, NO GALLOPS. VASCULAR: NO PERIPHERAL EDEMA. ABDOMEN: SOFT, POSITIVE BOWEL SOUNDS, NONDISTENDED, NO GUARDING, NONTENDER, NO REBOUND, NO MASSES NO HEPATOMEGALY, NO SPLENOMEGALY, NO GUERRA'S SIGN, NO HERNIAS. RECTAL: DEFERRED. GENITAL: DEFERRED. NEUROLOGICAL: NORMAL SPEECH, GROSS MOTOR FUNCTION INTACT, GROSS SENSORY FUNCTION INTACT. MUSCULOSKELETAL: NECK NONTENDER, FULL RANGE OF MOTION, BACK NONTENDER, FULL RANGE OF MOTION. EXTREMITIES: NONTENDER, FULL RANGE OF MOTION. LEFT ARM TENDERNESS ON PALPATION SKIN: COLOR PINK, DRY, NO TURGOR, NO RASH, NO LACERATIONS, NO ABRASIONS, NO CONTUSIONS. LYMPHATICS: DEFERRED. Results EKG/XRAY/US/CT/MRI X-RAY Comment [place] [id number] [address] IMAGING REPORT Signed PATIENT: KARSTEN ZHANG MR#: [id number] : 1955 SEX: F AGE: 68 LOCATION: [facility] ORDER 44 STATUS: [facility] REPORT#: [id number] SERVICE 42 REASON: fall, injury ORDERING PHYSICIAN: NERY BORJA PROCEDURE: FORARML - FOREARM 2VWS LT LEFT FOREARM RADIOGRAPHS - 2 VIEWS INDICATION: Pain COMPARISON: None FINDINGS: AP and lateral views. Distal left ulna is intact. Nondisplaced transverse articular impaction fracture deformity through the distal left radial metaphysis. DICTATED BY: RIGO FERNANDES MD DATE: 07/29/241822 ELECTRONICALLY SIGNED BY: RIGO FERNANDES MD DATE: 07/29/241825 [facility] MDM: DIFFERENTIAL DIAGNOSIS: DISTAL RADIAL FRACTURE, SPLINT EVALUATION RATIONALE: TESTS CONSIDERED AND ORDERED SECONDARY TO SHARED DECISION MAKING INCLUDE: PREVIOUS OUTSIDE RECORDS REVIEWED: OLD ER VISITS. RISK OF COMPLICATION AND/OR MORBIDITY OR MORTALITY OF PATIENT MANAGEMENT: NONE MEDICATIONS-PER MEDICATION RECONCILIATION NEED FOR HOSPITALIZATION: PATIENT DOES NOT MEET CRITERIA FOR HOSPITALIZATION. PATIENT IS A 68-YEAR-OLD FEMALE COMING IN TO BE EVALUATED FOR SPLINT PROBLEMS. PATIENT STATES THAT SHE HAS A SPLINT PLACED IN HER LEFT ARM DUE TO A RADIAL FRACTURE TWO DAYS AGO. SHE STATES HE COULD NOT TOLERATE IT BECAUSE IT WAS UNCOM FORTABLE SO SHE WAS HERE FOR FURTHER EVALUATION. SPLINT WAS REPLACED PATIENT FEELS BETTER WILL BE DISCHARGED IN STABLE CONDITION I DID ADVISED HER TO CONTINUE HER APPOINTMENT WITH MOBILITY ARCHITECT MANAGER. ED Course Vital Signs Date Time Temp Pulse Resp B/P (MAP) Pulse Ox O2 Delivery O2 Flow Rate FiO2 07/31/24 12:46 98.2 77 16 146/76 98 Room Air DX & DISP Disposition: Discharge Departure Impression: Primary Impression: Encounter for evaluation of wound Condition: Stable Additional Instructions: FOLLOW-UP WITH PRIMARY CARE PROVIDER IN 1 TO 2 DAYS. TAKE MEDICATIONS DIRECTED HERE IN THE EMERGENCY ROOM. OKAY TO CONTINUE HOME MEDICATIONS UNLESS OTHERWISE DISCUSSED DURING YOUR VISIT IN THE EMERGENCY ROOM TODAY. RETURN TO YOUR NEAREST EMERGENCY ROOM IF SYMPTOMS WORSEN OR IF THERE IS NO IMPROVEMENT. CALL 911 IF YOU NEED IMMEDIATE ASSISTANCE. TAKE TYLENOL [id number] NEEDED AND IF NO CONTRAINDICATIONS ARE PRESENT. INCREASE ORAL HYDRATION. A WOUND CULTURE OR URINE CULTURE WAS ORDERED HERE IN THE EMERGENCY ROOM DEPARTMENT PLEASE FOLLOW-UP WITH PRIMARY CARE PROVIDER AND ADVISE THEM TO GET REPEAT PORTS FROM OUR FACILITY. IF YOU HAD ANY JOSEPH WRAP/SPLINTS THAT WERE APPLIED HERE, PLEASE DO NOT REMOVE THEM UNTIL YOU SEE YOUR PRIMARY CARE OR SPECIALTY. REFERRALS: Referrals: NETO JOHN MD (PCP) Time of Disposition: 13:03 JOSTIN MUHAMMAD MD July 31, 2024 12:55
== END 2024-07-31 13:20 | disposition home or self-care (01) ==
LOC: EDH 12:34
DX: S52.325D Nondisplaced transverse fracture of shaft of left radius, subsequent encounter for closed fracture with routine healing (principal); X58.XXXD Exposure to other specified factors, subsequent encounter; E11.9 Type 2 diabetes mellitus without complications; Z79.84 Long term (current) use of oral hypoglycemic drugs; Z79.85 Long-term (current) use of injectable non-insulin antidiabetic drugs; Z88.0 Allergy status to penicillin; Z90.49 Acquired absence of other specified parts of digestive tract
CPT/HCPCS: 29125; 99283